=== PATIENT | female | born 1960 | race Caucasian/White ===

== ENCOUNTER → 2016-12-30 13:45 | Outpatient (CLI) | payer OTHER ==
[2014-02-11 14:47] VITALS: BMI 43.3
[~2016-12-30 13:45] MED LIST: ALEVE220 MG; BAYER CHEWABLE81 MG PO; CATAPRES0.2 MG PO; IBUPROFEN200 MG PO; K-DUR20 MEQ PO; LIPITOR10 MG PO; NORVASC10 MG PO; STERAPRED 5MG 65 M1 PO; ZESTORETIC 20-1 EACH PO
== END | disposition home or self-care (01) ==
LOC: D.MAMMO 09:00
DX: Z12.31 Encounter for screening mammogram for malignant neoplasm of breast (principal)

== ENCOUNTER 2020-04-18 05:20 | Inpatient (IN) | payer OTHER ==
[~2020-04-18] VITALS: Ht 167.6 cm; Wt 114.5 kg
[2020-04-18] VITALS (15 sets, daily range): BP systolic 82–125; BP diastolic 51–86; Ht 167.6 cm; Wt 114.5 kg
[~2020-04-18 05:20] MED LIST changes: +CENTRUM SILVER1 EAC3 PO; +CYCLOBENZAPRINE10 MG PO; +MAG-OX 400 MG400 MG PO; +MOBIC7.5 MG PO; +OMEGA-3100 MG PO; +STOOL SOFTENER100 M1 PO; +TRAZODONE HCL150 MG PO; +ULTRAM50 MG PO; +VERELAN120 MG PO; +ZOCOR20 MG PO
[2020-04-18 06:04] LABS: BASOPHILS 0.3 % (0-2); EOSINOPHILS 4.8 % (0-7); HEMATOCRIT 43.3 % (36.0-48.0); HEMOGLOBIN 13.8 g/dL (12-16); IMMATURE GRANULOCYTES 0.1 % (0-5); LYMPHOCYTE ABS# 2.93 10x3/uL (1.18-3.74); LYMPHOCYTES 37.3 % (15-50); MCH 27.8 pg (26.0-34.0); MCHC 31.9 g/dL (31.0-37.0); MCV 87.1 fL (80.0-100.0); MEAN PLATELET VOLUME 11.2 fL (7.4-10.4); MONOCYTES 9.2 % (2-11); NEUTROPHILS 48.3 % (40-80); PLATELET COUNT 261 10x3/uL (130-400); RBC 4.97 10x6/uL (4.00-5.40); RDW 14.5 % (11.5-14.5); WBC 7.9 10x3/uL (4.8-10.8)
[2020-04-18 06:05] LABS: BACTERIA FEW HPF (NONE SEEN); BILIRUBIN NEGATIVE (NEGATIVE); KETONE NEGATIVE (NEGATIVE); NITRITE NEGATIVE (NEGATIVE); SQUAMOUS EPITHELIAL 0-5 HPF (0-4); UROBILINOGEN NORMAL mg/dL (< 2); WHITE CELLS - URINE 0-5 HPF (0-4)
[2020-04-18 06:18] LABS: APTT 28.3 SECONDS (22.8-39.4); INR 1.02 (0.85-1.17); PROTIME 12.4 SECONDS (11.6-15.0)
[2020-04-18 06:19] LABS: SARS-CoV-2 ANTIGEN NEGATIVE- SARS-COV-2 (NEGATIVE)
[2020-04-18 06:33] LABS: CALC OSMOLALITY 276 mosm/kg (275-300); CALCIUM 9.4 mg/dL (8.5-10.1); CHLORIDE - SERUM 100 mmol/L (98-107); CREATININE - SERUM 0.8 mg/dL (0.6-1.3); POTASSIUM - SERUM 3.5 mmol/L (3.5-5.1); SODIUM 138 mmol/L (136-145); UREA NITROGEN 12 mg/dL (7-18); eGFR NON AFRICAN AMERICAN 77 mL/min (90-120)
[2020-04-18 06:35] LABS: GLUCOSE 114 mg/dL (74-106)
--- NOTE | 2020-04-18 08:39 | NUR ---
PT RIGHT LEG CLEANSED WITH HIBECLENS AND ALCOHOL FROM THIGH TO TOES CIRCUMFERENTIALLY PRIOR TO PREP. RIGHT LEG PREPPED WITH CHLORAPREP X2 FROM THIGH TO TOES CIRCUMFERENTIALLY. RN IN STERILE ATTIRE FOR PREP. TOURNIQUET APPLIED TO UPPER THIGH BUT NOT INFLATED. TRAFFIC KEPT TO MINIMUM IN ROOM.
--- NOTE | 2020-04-18 12:26 | NUR ---
PT CONTINUES TO HAVE NAUSEA BUT NO EMESIS AFTER ARRIVING ON FLOOR FROM PACU. ZOFRAN GIVEN IN PACU. SCDS ON BILAT WITH ELOISE HOSE ON RIGHT LEG ONLY. OXYGEN AT 3L PER NC. DRESSING CLEAN DRY AND VEENA WRAP IS INTACT WITH ICE BAG NOTED. BED ALARM ON AND ACTIVE. WILL CONTINUE TO MONITOR
--- NOTE | 2020-04-18 12:51 | OP ---
PATIENT NAME: MADELIN MARROQUIN MEDICAL RECORD: [id number] :56 LOCATION:D. D.1205 ADMISSION DATE:04/18/20 SURGEON: ZACHARY POON DO DATE OF OPERATION: 04/18/2020 PROCEDURE PERFORMED: Right total knee arthroplasty. PREOPERATIVE DIAGNOSIS: Right knee osteoarthritis. POSTOPERATIVE DIAGNOSIS: Right knee osteoarthritis. INDICATIONS: Ms. Marroquin is a 59-year-old female who has been getting injections for years. They have not worked. She was tired of dealing with the pain as it has affected her activities of daily living and wanted something done surgically. She came to my clinic. We set up for surgery, but then got COVID and was put back on the schedule for today after she had recovered. She was aware of the risks of the procedure including infection, bleeding, damage to nerves and vessels, need for further surgery, continued pain, blood clots and even , damage to nerves and vessels in the area of fracture, failure of implants and she signed the consent. SURGEON: Zachary Poon DO PROCEDURE IN DETAIL: The patient was taken to the operative suite, received a block by anesthesia in preoperative area and laid in supine position, given general anesthetic and intubated. She was given 3 grams of Ancef and 80 mg of gentamicin and a gram of TXA. The right lower extremity was then prepped and draped in sterile fashion. A timeout was performed and everyone was in agreeance with the correct side, site, patient and procedure. I then marked out the incision on the anterior knee and covered in Ioban. After the timeout was performed, I made an incision along the anterior knee, made down to the capsule with a fresh 10-blade, then medial parapatellar approach to the knee. I then everted the patella and milled it down and drilled for a 29 patella. I irrigated out the site and cemented in 29 patella. While it was drying, squeezer was held on, excess cement was removed. I then flexed the knee up, removed the ACL and used a drill to go into the femoral canal. Then used intramedullary guide and cut the distal femur. I then removed that guide and then exposed the proximal tibia using extramedullary guide and cut the proximal tibia, removed the excess bone, brought the knee to extension, removed the menisci and coagulating any bleeders. I then put the 10 extension block and it fit well after releasing some of the MCL. I then flexed the knee, upsized the femur to be an 8. An 8, 4-in-1 cutting block was then malleted on and then used an marlo wing to ensure there was no notching. I then cut the femur through the 4-in-1 cutting block, removed excess bone, exposed the tibia, sized it to be an E, pinned that into place, put on the trial femur and put in a 10 poly trial and it moved very well. She has had good stability in flexion and extension with varus and valgus stress. I then drilled the lug holes for the femur and the holes for the tibia, removed the trials and impacted on the tibial implant and the femoral implant and then put the poly in between and squeezed into place. I then ranged the knee and it ranged very well and had good stability in flexion and extension. I then put in 10% povidone iodine and 500 mL of normal saline solution, let it sit for a couple of minutes. I then irrigated out with a liter of normal saline. Put in christina, vancomycin and tobramycin powder and closed the capsule with #1 Vicryl in mcskzh-bg-sweez fashion and then 0 Quill running stitch on the capsule. This was done by Tono Higuera, certified surgical first OPERATIVE REPORT [id number] MADELIN MARROQUIN. Tono and then Donte Hernandez, certified surgical first assistant manager student both closed the skin with 2-0 Vicryl in an inverted interrupted fashion and put a ZipLine on the knee. She was then dressed with Adaptic, 4 x 4s, ABD, cast padding and 6-inch Jalen wrap and ELOISE hose stocking was placed up to the knee. She was then awakened and taken to recovery in stable condition. Blood loss was approximately 200 mL. COMPLICATIONS: None. TRANSINT:[id number] Voice Confirmation ID: [id number] DOCUMENT ID: [id number] ZACHARY POON DO at 1251 CC: [id number] DICTATION DATE: 04/18/20 0854 TELESALES AGENT: 04/18/20 1118 ADM IN [facility] [address] [place] [address]
--- NOTE | 2020-04-18 17:58 | NUR ---
PT HAD EMESIS APPROX 100 CC. ZOFRAN GIVEN ALONG WITH COLD WASHCLOTH. NO PAIN AT PRESENT. CALL LIGHT IN REACH
--- NOTE | 2020-04-18 20:00 | NUR ---
ALERT RESTING IN BED CPM IN USE, REQUESTING PAIN MEDS, SEE SHIFT ASSESSMENT, CALL LIGHT IN REACH
[2020-04-19] VITALS: BP 138/78
[2020-04-19 04:00] VITALS: BP 147/81
--- NOTE | 2020-04-19 07:26 | NUR ---
RESTING IN BED WITH EYES OPEN, ALERT AND ORIENTED. IV LOCATED TO LEFT HAND CURRENTLY RUNNING 1/2NS @ 50ML. CURRENTLY RCVING 2L VIA NC. NO CURRENT S/S OF DISTRESS, DENIES CURRENT NEEDS, WILL CONT TO MONITOR.
[2020-04-19 08:55] LABS: BASOPHILS 0.1 % (0-2); EOSINOPHILS 3.4 % (0-7); HEMATOCRIT 38.6 % (36.0-48.0); HEMOGLOBIN 12.3 g/dL (12-16); IMMATURE GRANULOCYTES 0.1 % (0-5); LYMPHOCYTE ABS# 1.73 10x3/uL (1.18-3.74); LYMPHOCYTES 22.9 % (15-50); MCH 28.1 pg (26.0-34.0); MCHC 31.9 g/dL (31.0-37.0); MCV 88.3 fL (80.0-100.0); MEAN PLATELET VOLUME 11.5 fL (7.4-10.4); MONOCYTES 10.7 % (2-11); NEUTROPHIL ABS# 4.75 10x3/uL (1.56-6.13); NEUTROPHILS 62.8 % (40-80); RBC 4.37 10x6/uL (4.00-5.40); RDW 14.6 % (11.5-14.5); WBC 7.6 10x3/uL (4.8-10.8)
[2020-04-19 08:58] LABS: PLATELET COUNT 204 10x3/uL (130-400)
[2020-04-19 09:01] LABS: CALC OSMOLALITY 274 mosm/kg (275-300); CALCIUM 8.3 mg/dL (8.5-10.1); CARBON DIOXIDE 32.2 mmol/L (21.0-32.0); CHLORIDE - SERUM 100 mmol/L (98-107); CREATININE - SERUM 0.8 mg/dL (0.6-1.3); GLUCOSE 124 mg/dL (74-106); POTASSIUM - SERUM 3.6 mmol/L (3.5-5.1); SODIUM 137 mmol/L (136-145); UREA NITROGEN 12 mg/dL (7-18); eGFR NON AFRICAN AMERICAN 77 mL/min (90-120)
[2020-04-19 09:21] VITALS: BP 145/95
[2020-04-19 13:43] VITALS: BP 160/73
--- NOTE | 2020-04-19 16:41 | MORECARE ---
CASE MANAGEMENT DISCHARGE SUMMARY PATIENT: MADELIN WATSON UNIT: [id number] ADM DATE: 04/18/20 AGE: 59 : 56 SEX: F ROOM/BED: D.1205 AUTHOR: OLIVE BORRERO PHYSICIAN: REFERRING PHYSICIAN: NICOLAS POON DO DATE OF SERVICE: 04/19/20 Discharge Plan Patient Name: MADELIN WATSON Facility: [facility]:[place] : 1960 Planned Disposition: Home Anticipated Discharge Date: Discharge Date: Expected LOS: Initial Reviewer: [email or web address] Initial Review Date: 04/18/2020 Generated: 04/19/20 5:40 pm Patient Name: MADELIN WATSON Page [id number] at 1641 All edits/amendments must be made on the electronic document DICTATION DATE: 04/19/20 1640 LASER SPECIALIST: FERN 04/19/20 1640 RPT#: [id number] DC DATE: STATUS: ADM IN [facility] [address] [place] [address] END OF REPORT
[2020-04-19 16:58] VITALS: BP 114/55
--- NOTE | 2020-04-19 17:10 | MORECARE ---
CASE MANAGEMENT DISCHARGE SUMMARY PATIENT: MADELIN WATSON UNIT: [id number] ADM DATE: 04/18/20 AGE: 59 : 56 SEX: F ROOM/BED: D.1205 AUTHOR: OLIVE BORRERO PHYSICIAN: REFERRING PHYSICIAN: NICOLAS POON DO DATE OF SERVICE: 04/19/20 Discharge Plan Patient Name: MADELIN WATSON Facility: [facility]:[place] : 1960 Planned Disposition: Home Anticipated Discharge Date: Discharge Date: Expected LOS: Initial Reviewer: [id number] Initial Review Date: 04/18/2020 Generated: 04/19/20 6:09 pm DCPIA - Discharge Planning Initial Assessment Updated by WONG: Toma Cardenas on 04/19/20 5:08 pm * Is the patient Alert and Oriented? Yes * How many steps to enter\exit or inside your home? * PCP REE[facility] * Pharmacy [facility] * Preadmission Environment Home with Family * ADLs Independent * Equipment Elevated Toliet Seat * Other Equipment CPM, WALKER * List name and contact numbers for known caregivers / representatives who currently or will assist patient after discharge: MICHELLEJOHANNA TRAVISEL NEPHEW - [phone] ALEKSANDRA NIEVES [facility] - [phone] * Verbal permission to speak to the caregivers and representatives has been obtained from the patient. N/A * Community resources currently utilized None * Additional services required to return to the preadmission environment? No * Can the patient safely return to the preadmission environment? Yes * Has this patient been hospitalized within the prior 30 days at any hospital? No Coverage Notice Reviewer: [id number] - Toma Cardenas Notice Issued Date-Time: 04/19/2020 12:00 Notice Type: Patient Choice Letter Notice Delivered To: Patient Relationship to Patient: Supervisor [employer]spring Fab[employer]ation Name: Delivery Method: HAND - Hand Delivered Analilia Days: Prior Verbal Notification: Recipient Understood Notice: Yes Recipient Signature: Yes Med Rec Note Co-signed by Attending: Coverage Notice Comment: SIXTO THERAPY Last DP export: 04/19/20 3:41 p Patient Name: MADELIN WATSON Page [id number] at 1710 All edits/amendments must be made on the electronic document DICTATION DATE: 04/19/201708 COMMUNICATIONS TECH: FERN 04/19/201708 RPT#: [id number] DC DATE: STATUS: ADM IN [facility] [address] [place] [address] END OF REPORT
--- NOTE | 2020-04-19 17:18 | MORECARE ---
CASE MANAGEMENT DISCHARGE SUMMARY PATIENT: MADELIN WATSON UNIT: [id number] ADM DATE: 04/18/20 AGE: 59 : 56 SEX: F ROOM/BED: D.1205 AUTHOR: GISSLEL,DOC PHYSICIAN: REFERRING PHYSICIAN: NICOLAS POON DO DATE OF SERVICE: 04/19/20 Discharge Plan Patient Name: MADELIN WATSON Facility: [facility]:[place] : 1960 Planned Disposition: Home Anticipated Discharge Date: Discharge Date: Expected LOS: Initial Reviewer: [email or web address] Initial Review Date: 04/18/2020 Generated: 04/19/20 6:17 pm Comments DCP- Discharge Planning Updated by [email or web address]: Toma Cardenas on 04/19/20 4:[address] Patient Name: MADELIN WATSON Admission Status: Elective Accout number: [id number] Admission Date: 04-18-2020 : 1960 Admission Diagnosis: Attending: NICOLAS POON Current LOS: 1 Anticipated DC Date: Planned Disposition: Home Primary Insurance: [facility] Discharge Planning Comments: CM met with patient to complete initial dc planning assessment. CM educated patient on the CM role and verbal consent given by patient to complete assessment. Patient lives at home with her nephew Michelle. Patient is independent. At discharge patient plans to return home and feels this is a safe discharge. CM discussed availability of home health, rehab services, and medical equipment. GRACIA signed for [facility]o [facility] Tika Patient will have family to transport home. Patient denied known discharge needs at this time. CM will continue to follow and will assist as needed with dc plans/needs. Patient is scheduled for Therapy on Friday04/24/20 @ 1330 for a 2 PM appt Spreader: Toma Cardenas DCPIA - Discharge Planning Initial Assessment Updated by [email or web address]: Toma Cardenas on 04/19/20 5:08 pm * Is the patient Alert and Oriented? Yes * How many steps to enter\exit or inside your home? * PCP REEVES * Pharmacy [facility] * Preadmission Environment Home with Family * ADLs Independent * Equipment Elevated Toliet Seat * Other Equipment CPM, WALKER * List name and contact numbers for known caregivers / representatives who currently or will assist patient after discharge: MICHELLE ThorpeNEPHLYNDA - [phone] ALEKSANDRA TREVIÑO - [phone] * Verbal permission to speak to the caregivers and representatives has been obtained from the patient. N/A * Community resources currently utilized None * Additional services required to return to the preadmission environment? No * Can the patient safely return to the preadmission environment? Yes * Has this patient been hospitalized within the prior 30 days at any hospital? No Coverage Notice Reviewer: [id number] Ila Cardenas Notice Issued Date-Time: 04/19/2020 12:00 Notice Type: Patient Choice Letter Notice Delivered To: Patient Relationship to Patient: Rn Charge Name: Delivery Method: HAND - Hand Delivered Analilia Days: Prior Verbal Notification: Recipient Understood Notice: Yes Recipient Signature: Yes Med Rec Note Co-signed by Attending: Coverage Notice Comment: SIXTO THERAPY Last DP export: 04/19/20 4:10 p Patient Name: MADELIN WATSON Page [phone] at 1718 All edits/amendments must be made on the electronic document DICTATION DATE: 04/19/201717 BRASS BURNISHER: FERN 04/19/201717 RPT#: [id number] DC DATE: STATUS: ADM IN [facility] [address] [place] [address] END OF REPORT
[2020-04-19 20:18] VITALS: BP 118/63
[2020-04-20 04:00] VITALS: BP 116/67
[2020-04-20 07:24] VITALS: BP 115/68
--- NOTE | 2020-04-20 08:00 | NUR ---
PT AWAKE, ALERT, AND ORIENTED. NO NEEDS AT THIS TIME. CL IN REACH. STATES PAIN IS A 4 OUT OF 10 ON THE PAIN SCALE. BED ALARM ON WCTM
[2020-04-20 09:06] LABS: HEMATOCRIT 37.3 % (36.0-48.0); HEMOGLOBIN 12.1 g/dL (12-16); LYMPHOCYTES 24.4 % (15-50); MCH 28.3 pg (26.0-34.0); MCHC 32.4 g/dL (31.0-37.0); MCV 87.4 fL (80.0-100.0); MEAN PLATELET VOLUME 11.6 fL (7.4-10.4); PLATELET COUNT 212 10x3/uL (130-400); RBC 4.27 10x6/uL (4.00-5.40); RDW 14.1 % (11.5-14.5); WBC 9.3 10x3/uL (4.8-10.8)
[2020-04-20 09:23] LABS: ANION GAP 10.1 mmol/L (8-16); CALCIUM 8.8 mg/dL (8.5-10.1); CARBON DIOXIDE 31.5 mmol/L (21.0-32.0); CREATININE - SERUM 0.9 mg/dL (0.6-1.3); POTASSIUM - SERUM 3.6 mmol/L (3.5-5.1)
[2020-04-20 11:48] VITALS: BP 118/70
--- NOTE | 2020-04-20 12:18 | NUR ---
DRESSING CHANGE COMPLETED. TOLERATED WELL. CL IN REACH. MINIMAL DRAINAGE ON OLD ABD AND 4X4. SITTING UP IN CHAIR. NO NEEDS AT THIS TIME. WCTM
[2020-04-20] MEDS ORDERED: ELIQUIS2.5 MG PO (12:52)
[2020-04-20] MEDS ORDERED: VISTARIL50 MG PO (12:53)
[2020-04-20] MEDS ORDERED: PERCOCET 10-321 EAC1 PO (12:53)
--- NOTE | 2020-04-20 14:53 | NUR ---
DC'ED IV THERAPY FROM WITH TIP INTACT. DISCHARGE PAPERWORK GIVEN. PT VERBALIZED UNDERSTANDING. ASSISTED GETTING DRESSED. CL IN REACH. WCTM
--- NOTE | 2020-04-20 17:21 | MORECARE ---
CASE MANAGEMENT DISCHARGE SUMMARY PATIENT: MADELIN WATSON UNIT: [id number] ADM DATE: 04/18/20 AGE: 59 : 56 SEX: F ROOM/BED: D.1205 AUTHOR: GISSELL,DOC PHYSICIAN: REFERRING PHYSICIAN: NICOLAS POON DO DATE OF SERVICE: 04/20/20 Discharge Plan Patient Name: MADELIN WATSON Facility: [facility]:[place] : 1960 Planned Disposition: Home Anticipated Discharge Date: Discharge Date: 04/20/2020 Expected LOS: Initial Reviewer: [email or web address] Initial Review Date: 04/18/2020 Generated: 04/20/20 6:20 pm DCP- Discharge Planning Updated by [email or web address]: Toma Cardenas on 04/19/20 4:[address] Patient Name: MADELIN WATSON Admission Status: Elective Accout number: [id number] Admission Date: 04-18-2020 : 1960 Admission Diagnosis: Attending: NICOLAS POON Current LOS: 1 Anticipated DC Date: Planned Disposition: Home Primary Insurance: [facility] Discharge Planning Comments: CM met with patient to complete initial dc planning assessment. CM educated patient on the CM role and verbal consent given by patient to complete assessment. Patient lives at home with her nephew Michelle. Patient is independent. At discharge patient plans to return home and feels this is a safe discharge. CM discussed availability of home health, rehab services, and medical equipment. GRACIA signed for Jono & Tika Patient will have family to transport home. Patient denied known discharge needs at this time. CM will continue to follow and will assist as needed with dc plans/needs. Patient is scheduled for Therapy on Friday04/24/20 @ 1330 for a 2 PM appt Circular Clerk: Toma Cardenas DCPIA - Discharge Planning Initial Assessment Updated by [email or web address]: Toma Cardenas on 04/19/20 5:08 pm * Is the patient Alert and Oriented? Yes * How many steps to enter\exit or inside your home? * PCP REEV[facility] * Pharmacy [facility] * Preadmission Environment Home with Family * ADLs Independent * Equipment Elevated Toliet Seat * Other Equipment CPM, WALKER * List name and contact numbers for known caregivers / representatives who currently or will assist patient after discharge: MICHELLE ThorpeNEPHLYNDA - [phone] ALEKSANDRA TREVIÑO - [phone] * Verbal permission to speak to the caregivers and representatives has been obtained from the patient. N/A * Community resources currently utilized None * Additional services required to return to the preadmission environment? No * Can the patient safely return to the preadmission environment? Yes * Has this patient been hospitalized within the prior 30 days at any hospital? No Coverage Notice Reviewer: [id number] - Toma Cardenas Notice Issued Date-Time: 04/19/2020 12:00 Notice Type: Patient Choice Letter Notice Delivered To: Patient Relationship to Patient: Console Assembler Name: Delivery Method: HAND - Hand Delivered Analilia Days: Prior Verbal Notification: Recipient Understood Notice: Yes Recipient Signature: Yes Med Rec Note Co-signed by Attending: Coverage Notice Comment: SIXTO THERAPY Last DP export: 04/19/20 4:18 p Patient Name: MADELIN WATSON Page 60105 at 1721 All edits/amendments must be made on the electronic document DICTATION DATE: 04/20/201719 CLOTH MEASURER: FERN 04/20/201719 RPT#: [id number] DC DATE:04/20/20 STATUS: DIS IN [facility] [address] [place] [address] END OF REPORT
== END 2020-04-20 15:42 | disposition home or self-care (01) | DRG 470 ==
LOC: D.OPS 05:20 → D.M3 10:22 → D.OPS 10:43 → D.M3 10:44
PROVIDERS: Family Medicine; ADMIT Orthopaedic Surgery; ATTEND Orthopaedic Surgery
PROC: 0SRC0J9 Replacement of Right Knee Joint with Synthetic Substitute, Cemented, Open Approach (ICD-10-PCS; principal; 2020-04-18 07:00)
DX: M17.11 Unilateral primary osteoarthritis, right knee (principal); E11.9 Type 2 diabetes mellitus without complications; I10 Essential (primary) hypertension; K59.00 Constipation, unspecified; Z86.73 Personal history of transient ischemic attack (TIA), and cerebral infarction without residual deficits; Z86.16 Personal history of COVID-19

== ENCOUNTER 2020-08-23 14:30 | Outpatient (CLI) | payer OTHER ==
[2020-04-18 10:42] VITALS: BMI 40.7
[~2020-08-23 14:30] MED LIST changes: +ELIQUIS2.5 MG PO; +PERCOCET 10-321 EAC1 PO; +VISTARIL50 MG PO
== END 2020-08-23 23:59 | disposition home or self-care (01) ==
LOC: D.MAMMO 14:30
PROVIDERS: ATTEND Family Medicine
DX: Z12.31 Encounter for screening mammogram for malignant neoplasm of breast (principal)